=== PATIENT | female | born 1990 | race Caucasian/White ===

== ENCOUNTER 2018-03-01 23:21 | Emergency (ER) | payer BC, OTHER ==
[2018-03-02] MEDS: ONDANSETRON 4 MG INJ IV ×2 (02:55→05:51)
[2018-03-02] MEDS: FAMOTIDINE 20 MG INJ IV (02:55)
[2018-03-02] MEDS: SOD CHLORIDE 0.9% 1,000 ML IV ×2 (02:56→05:52)
[2018-03-02 04:04] LABS: URINE BLOOD (Dip) POC Negative (NEGATIVE); URINE GLUCOSE (Dip) POC Negative (NEGATIVE); URINE KETONES (Dip) POC 1+ (NEGATIVE); URINE LEUKOCYTE EST (Dip) POC Negative (NEGATIVE); URINE NITRITE (Dip) POC Negative (NEGATIVE); URINE TOTAL PROTEIN POC 2+ (NEGATIVE)
[2018-03-02 04:04] LABS: URINE PH (Dip) POC >=9.0 (5.0-8.5)
== END 2018-03-02 07:18 | disposition home or self-care (01) ==
LOC: FTE 23:21
DX: R11.2 Nausea with vomiting, unspecified (principal); R19.7 Diarrhea, unspecified
CPT/HCPCS: 81003; 81025; 96374; 96375; 96376; 99284-25